=== PATIENT | male | born 1960 | race African-American/Black ===

== ENCOUNTER 2022-07-25 10:55 | Emergency (ER) | payer OTHER ==
[2022-07-25] MEDS ORDERED: FLEXERIL5 MG PO (14:13)
[2022-07-25] MEDS ORDERED: NORCO 5-325 TA1 EACH PO (14:13)
== END 2022-07-25 14:53 | disposition home or self-care (01) ==
LOC: FER 10:55
DX: S39.012A Strain of muscle, fascia and tendon of lower back, initial encounter (principal); E11.9 Type 2 diabetes mellitus without complications; I10 Essential (primary) hypertension; Z88.5 Allergy status to narcotic agent; X50.0XXA Overexertion from strenuous movement or load, initial encounter; Y93.89 Activity, other specified
CPT/HCPCS: 96372; 99283; J1170; J1885; J2405